=== PATIENT | male | born 1995 | race Two or more races ===

== ENCOUNTER 2017-10-19 01:16 | Emergency (ER) | payer SELFPAY ==
[2017-10-19] MEDS: LIDOCAINE WITH 8.4% SOD BICARB 3 ML DISP.SYRIN. INJ (04:54)
[2017-10-19] MEDS: DIPHTH,PERTUSS(ACELL),TET TOX 0.5 ML DISP.SYRIN. VAX IM (05:36)
[2017-10-19] MEDS: NEOMY/BACITR/POLYMYXIN OINT PACKET. TP (05:37)
== END 2017-10-19 05:44 | disposition home or self-care (01) ==
LOC: ER 01:16
DX: S51.811A Laceration without foreign body of right forearm, initial encounter (principal); W26.8XXA Contact with other sharp object(s), not elsewhere classified, initial encounter; Y93.01 Activity, walking, marching and hiking; Y92.89 Other specified places as the place of occurrence of the external cause; Y99.8 Other external cause status
CPT/HCPCS: 12002; 90471; 90715; 99283